=== PATIENT | female | born 1980 ===

== ENCOUNTER 2021-02-16 14:04 | Day surgery (SDC) | payer MEDICARE, MEDICAID, SELFPAY ==
[2021-02-09 09:38] VITALS: BMI 43.5
[2021-02-16] VITALS (7 sets, daily range): BP systolic 127–170; BP diastolic 81–95; PULSE 60–77; RESP 14–24; TEMP 36.5–37.3; O2SAT 92–97; BMI 43.5
[2021-02-16] MEDS: LACTATED RINGERS 1,000 ML 100 ML IV (16:05)
--- NOTE | 2021-02-16 16:35 | PM.PREOP ---
Pre-operative Note COVID-19 COVID-19 status: Negative Interval Note History & Physical reviewed/Exam performed by Physician: Yes Changes to H&P: No
--- NOTE | 2021-02-16 16:36 | PM.OP.1 ---
Operative Date/Time/Diagnoses Date of procedure: 02/16/21 Time of procedure: 16:36 Pre-op diagnosis: Right gastrocnemius equinus Post-op diagnosis: same Procedure & Clinicians Procedure: Right gastrocnemius recession Same procedure as scheduled: Yes Indications: Painful ankle right foot with ongoing calf tightness. Conservative measures failed to alleviate her pain and she wished to have surgical intervention at this time. We spoke of the risks, potential complications, expected outcomes. Medical clearance given. No contraindications to the procedure at this time. Surgeon: Odette Solorzano Click Yes if Unassisted: Yes Anesthesia Type: General Operative Notes Closure Type: primary Specimen(s): none sent Estimated Blood Loss (mL): 10 Blood products transfused: none Tourniquet time (min): 28 Procedure in detail: Patient was brought to the operating room and in the gurney after a verification of procedure and consent had been given, the anesthesiologist performed the induction of general anesthesia. She was then carefully transferred prone onto the operating table with the tourniquet around her right thigh, and appropriately padded and aligned. The right foot and ankle were prepped and draped in the usual aseptic manner. The tourniquet was inflated to the right thigh. After a check of anesthesia, an incision was made approximately 12-13 cm proximal to the insertion point of the Achilles tendon at the calcaneus along the calf just slightly medial to midline. The incision was deepened through subcutaneous tissues being careful to identify and retract all vital neural and vascular structures. All bleeders were cauterized and ligated as necessary. Dissection was carried down through to the gastrocsoleus musculature where careful dissection allowed medially and laterally for me to see the edges clearly. Verification of [place] neurovascular structures was in place prior to any further resection. A ribbon retractor was carefully placed from medial to lateral under the gastrocnemius musculature this out from the soleus and next a measurement was performed with an approximately 3 cm separation between the most distal and most proximal aspects of the resection. Once the plantar soleus musculature was protected, the medial 1/3 and lateral 1/3 distally was resected, and then this central aspect of gastrocnemius was resected proximally. This was then connected and was able to slide with dorsiflexion of the foot on the ankle. I was able to gain about 1 and half to 2 cm of length and the ankle was able to move with less tightness at that time. The area was irrigated with copious amounts of normal sterile saline. The tourniquet was deflated at prompt hyperemic response was seen to the foot and ankle. 3-0 Vicryl was used to sew the edges of the lengthened tissue together and good strength was noted. Deep fascial coverage was also repaired with 3-0 Vicryl and 4-0 Vicryl subcutaneously. 3-0 nylon was used to close the skin. A dressing up was applied using Adaptic 4x4s Kerlix and an Andrés wrap. She was placed in a stockinette and postsurgical boot and transferred back onto the [facility] and to the PACU with vital signs stable and vascular status intact to the foot. Post-operative Condition: stable Disposition: PACU Plan for aftercare: Following a period of postoperative monitoring, the patient be discharged to home on written and oral postoperative instructions including keeping the dressing dry and intact, avoiding significant ambulation on the foot (<50% weightbearing to the surgical foot), icing and elevating the foot when seated home. DVT prevention techniques have been reviewed. She will start her first Lovenox injection tomorrow. For the 1st postoperative visit the dressing will be changed and close to the 3rd postoperative week we will likely remove the sutures.
[2021-02-16] MEDS: CEFAZOLIN 1 GM VIAL 2 GM IV (17:03)
--- NOTE | 2021-02-16 17:14 | SUR.OPER ---
Prone on padded OR bed, head in foam head support, gel chest rolls, gel pad under knees, pillow under lower legs, toes free of pressure, arms secured on padded arm boards at <90 degrees abduction. Safety belt at thigh.
[2021-02-16] MEDS: BUPIVACAINE 0.5% (PF) VIAL 30 ML INJ (17:25)
[2021-02-16] MEDS: OXYCODONE/ACETAMINOPHEN 5/325 TABLET 1 TAB PO (18:27)
--- NOTE | 2021-02-16 18:29 | SUR.PHASEI ---
Medicated in effort to maintain pain control r/t chronic pain. Applesauce and water given prior to Rx. Pt dozing intermittently, arouses easily to voice, resp unlabored. Answers appropriate. Trial of room ain - sat 90-92%, usualy 91%. Returned to 2LNP.
--- NOTE | 2021-02-16 18:32 | SUR.PHASEI ---
Encouraged CPAP use at home, explained that she is not maintaining an adequate oxygen level on room air
--- NOTE | 2021-02-16 18:41 | SUR.PHASEI ---
Dr Solorzano informed of patient status, denies pain. Oxygen sat varies, currently 6-98 on room air with occasional dips as low as 88% briefly. Dr informed that patient was encouraged to use CPAP at home.
--- NOTE | 2021-02-16 18:46 | SUR.PHASEI ---
Patient reported that the CPAP went back to the company as she was not using it. States that she can sleep with the HOB elevated.
--- NOTE | 2021-02-16 18:47 | SUR.PHASEII ---
Unable to assess neuro per boot and dressing.
--- NOTE | 2021-02-16 18:49 | SUR.PHASEII ---
Able to use IS up to [id number]
--- NOTE | 2021-02-16 19:11 | SUR.PHASEII ---
Patient stable, voided, dressed self without difficulty. Fresh ice pack given for discharge. No questions from patient.
== END 2021-02-16 17:10 | disposition home or self-care (01) ==
LOC: OR 14:06 → AC 14:08 → OR 18:37
PROVIDERS: Referring Provider Podiatrist; Visit Provider Podiatrist
PROC: (CPT 27687; principal; 2021-02-16 15:15)
DX: M21.6X1 Other acquired deformities of right foot (principal); M79.661 Pain in right lower leg; M25.571 Pain in right ankle and joints of right foot; M19.079 Primary osteoarthritis, unspecified ankle and foot; R26.2 Difficulty in walking, not elsewhere classified; J45.909 Unspecified asthma, uncomplicated; G47.33 Obstructive sleep apnea (adult) (pediatric); F43.10 Post-traumatic stress disorder, unspecified; F31.81 Bipolar II disorder; F90.9 Attention-deficit hyperactivity disorder, unspecified type; F17.210 Nicotine dependence, cigarettes, uncomplicated
CPT/HCPCS: 27687; 81025; J0690; J1100; J1885; J2250; J2405; J2704; J3010